=== PATIENT | female | born 1970 | race Caucasian/White ===

== ENCOUNTER 2017-10-02 17:56 | Emergency (ER) | payer MEDICARE, OTHER ==
[~2017-10-02] VITALS: Ht 152.4 cm; Wt 72.6 kg
[~2017-10-02 17:56] MED LIST: ALBU90OI INH; ATOM25 PO; Ativan0.5 MG PO; BENZ1 PO; BENZ2 PO; BUSP15 PO; BUSPAR PO; CARB200; DIAZ5 PO; DULO60 PO; FLUSAL2505 INH; GUAI600T33 PO; HALDOL PO; HALO1 PO; HYDHCL25 PO; IBUP200 PO; LEVE500 PO; LITH300CA PO; LITH300ER; LORA1; LORA1 PO; LORAZEPAM PO; METO25ER PO; MIRT15 PO; PERP4 PO; PRED20; PROP10 PO; PROP20 PO; QUET100 PO; QUET200 PO; QUET300 PO; RANI150 PO; VENL75; [UNRECOGNIZED DRUG - REMARK]
[2017-10-02] MEDS ORDERED: LEVE500 PO (18:08)
== END 2017-10-02 19:32 | disposition home or self-care (01) ==
LOC: ER 17:56
DX: G40.909 Epilepsy, unspecified, not intractable, without status epilepticus (principal); Z91.14 Patient's other noncompliance with medication regimen; F31.9 Bipolar disorder, unspecified; F17.210 Nicotine dependence, cigarettes, uncomplicated; Z79.899 Other long term (current) drug therapy
CPT/HCPCS: J1953; J3010

== ENCOUNTER → 2019-05-02 | Outpatient (CLI) | payer MEDICARE, OTHER ==
[2019-05-02 18:20] LABS: U Amphetamine Screen Not Detected; U Barbituate Screen Not Detected; U Benzodiazapine Screen DETECTED; U Buprenorphine Screen Not Detected; U Cannabinoids Screen DETECTED; U Cocaine Screen Not Detected; U Methadone Screen Not Detected; U Methamphetamine Screen Not Detected; U Opiates Screen Not Detected; U Oxycodone Screen Not Detected; U Phencyclidine Screen DETECTED; U Propoxyphene Screen Not Detected
== END | disposition home or self-care (01) ==
LOC: LAB 17:33 → LAB SHORT 17:33
PROVIDERS: Psychiatry & Neurology Psychiatry
DX: Z51.81 Encounter for therapeutic drug level monitoring (principal); Z79.899 Other long term (current) drug therapy
CPT/HCPCS: G0480

== ENCOUNTER → 2020-02-22 | Outpatient (CLI) | payer MEDICARE, OTHER ==
[2020-02-22 14:00] LABS: BASOPHILS ABSOLUTE AUTO 0.04 K/mm3 (0.00-0.23); BASOPHILS PERCENT AUTO 1 % (0-2); EOSINOPHILS ABSOLUTE AUTO 0.09 K/mm3 (0.00-0.68); EOSINOPHILS PERCENT AUTO 1 % (0-6); Hematocrit 29.9 % (33.0-51.0); Hemoglobin 8.6 g/dL (11.5-16.0); IMMATURE GRAN ABSOLUTE AUTO 0.03 K/mm3 (0.00-0.10); IMMATURE GRAN PERCENT AUTO 0 % (0-1); LYMPHOCYTES ABSOLUTE AUTO 1.82 K/mm3 (0.84-5.20); LYMPHOCYTES PERCENT AUTO 27 % (21-46); MONOCYTES ABSOLUTE AUTO 0.45 K/mm3 (0.16-1.47); MONOCYTES PERCENT AUTO 7 % (4-13); Mean Corpuscular HGB 20.2 pg (26.0-34.0); Mean Corpuscular HGB Conc 28.8 g/dL (31.5-36.5); Mean Corpuscular Volume 70 fL (80-100); Mean Platelet Volume 9.1 fL (9.1-12.4); NEUTROPHILS ABSOLUTE AUTO 4.36 K/mm3 (1.96-9.15); NEUTROPHILS PERCENT AUTO 64 % (41-73); Platelet Count 373 K/mm3 (150-400); RDW Coefficient Variation 22.4 % (11.7-14.2); Red Blood Cell Count 4.26 M/mm3 (3.80-5.20); White Blood Cell Count 6.79 K/mm3 (4.00-11.30)
[2020-02-22 14:05] LABS: Alanine Aminotransfer (ALT/SGP 21 U/L (12-78); Albumin, Blood 3.6 g/dL (3.4-5.0); Albumin/Globulin Ratio 0.9 (0.8-1.8); Alk Phos 63 U/L (40-126); Anion Gap 8 mmol/L (6-16); Aspartate Aminotrans (AST/SGOT 17 U/L (12-37); Bilirubin, Total 0.2 mg/dL (0.1-1.0); Blood Urea Nitrogen 9 mg/dL (8-24); Bun/Creatinine Ratio 15.5 (12.0-20.0); CO2, Blood 29 mmol/L (21-32); Calcium, Blood 8.5 mg/dL (8.5-10.1); Chloride, Blood 103 mmol/L (98-108); Creatinine, Blood 0.58 mg/dL (0.40-1.00); Globulin, Blood 3.8 g/dL (2.2-4.0); Glomerular Filtration Rate >60 (60-); Glucose, Blood 91 mg/dL (70-99); Potassium, Blood 3.9 mmol/L (3.5-5.5); Sodium, Blood 140 mmol/L (136-145); Total Protein, Blood 7.4 g/dL (6.4-8.2)
[2020-02-22 14:13] LABS: Troponin I <0.017 ng/mL (0.000-0.040)
[2020-02-22 15:17] LABS: Percent Saturation 2.1 % (15.0-50.0)
== END | disposition home or self-care (01) ==
LOC: LAB SHORT 13:39 → LAB EV 13:39
PROVIDERS: Chiropractor
DX: D64.9 Anemia, unspecified (principal); R07.9 Chest pain, unspecified
CPT/HCPCS: 80053; 82728; 83540; 83550; 84484; 85025; 85379

== ENCOUNTER 2020-03-16 13:18 | Inpatient (IN) | payer MEDICARE, OTHER ==
[~2020-03-16] VITALS: Ht 157.5 cm; Wt 99.8 kg
[~2020-03-16 13:18] MED LIST changes: -DULO60 PO
[2020-03-16 14:20] LABS: BASOPHILS ABSOLUTE AUTO 0.03 K/mm3 (0.00-0.23); BASOPHILS PERCENT AUTO 0 % (0-2); EOSINOPHILS ABSOLUTE AUTO 0.09 K/mm3 (0.00-0.68); EOSINOPHILS PERCENT AUTO 1 % (0-6); Hematocrit 36.8 % (33.0-51.0); Hemoglobin 10.9 g/dL (11.5-16.0); IMMATURE GRAN ABSOLUTE AUTO 0.04 K/mm3 (0.00-0.10); IMMATURE GRAN PERCENT AUTO 1 % (0-1); LYMPHOCYTES ABSOLUTE AUTO 1.07 K/mm3 (0.84-5.20); LYMPHOCYTES PERCENT AUTO 12 % (21-46); MONOCYTES PERCENT AUTO 6 % (4-13); Mean Corpuscular HGB 23.2 pg (26.0-34.0); Mean Corpuscular HGB Conc 29.6 g/dL (31.5-36.5); Mean Corpuscular Volume 78 fL (80-100); Mean Platelet Volume 8.9 fL (9.1-12.4); NEUTROPHILS ABSOLUTE AUTO 6.91 K/mm3 (1.96-9.15); NEUTROPHILS PERCENT AUTO 80 % (41-73); Platelet Count 271 K/mm3 (150-400); RDW Coefficient Variation 27.1 % (11.7-14.2); RDW Standard Deviation 74.8 fL (35.1-46.3); White Blood Cell Count 8.64 K/mm3 (4.00-11.30)
[2020-03-16 14:42] LABS: Acetaminophen, Random <2.0 ug/mL (10.0-30.0); Alanine Aminotransfer (ALT/SGP 24 U/L (12-78); Albumin, Blood 3.1 g/dL (3.4-5.0); Alk Phos 64 U/L (50-136); Anion Gap 4 mmol/L (6-16); Aspartate Aminotrans (AST/SGOT 30 U/L (12-37); Bilirubin, Total 0.2 mg/dL (0.1-1.0); Blood Urea Nitrogen 10 mg/dL (8-24); Bun/Creatinine Ratio 14.7 (12.0-20.0); CO2, Blood 28 mmol/L (21-32); Calcium, Blood 8.4 mg/dL (8.5-10.1); Chloride, Blood 110 mmol/L (98-108); Creatinine, Blood 0.68 mg/dL (0.40-1.00); Ethanol (Alcohol), Blood, Med <3 mg/dL; Globulin, Blood 3.2 g/dL (2.2-4.0); Glomerular Filtration Rate >60 (60-); Glucose, Blood 121 mg/dL (70-99); Potassium, Blood 3.8 mmol/L (3.5-5.5); Salicylate <1.7 mg/dL (2.8-20.0); Sodium, Blood 142 mmol/L (136-145); Thyroid Stimulating Hormone 0.795 uIU/mL (0.360-4.800); Thyroxine (T4) 10.2 ug/dL (4.8-13.9); Total Protein, Blood 6.3 g/dL (6.4-8.2)
[2020-03-16 16:15] LABS: U Amphetamine Screen Not Detected; U Barbituate Screen Not Detected; U Benzodiazapine Screen DETECTED; U Buprenorphine Screen Not Detected; U Cannabinoids Screen Not Detected; U Cocaine Screen Not Detected; U Methadone Screen Not Detected; U Methamphetamine Screen DETECTED; U Opiates Screen Not Detected; U Oxycodone Screen Not Detected; U Phencyclidine Screen Not Detected; U Propoxyphene Screen Not Detected
[2020-03-16] MEDS ORDERED: ATORVASTATIN CA20 MG PO (16:25)
[2020-03-16] MEDS ORDERED: Lamictal150 MG PO (16:25)
[2020-03-16] MEDS ORDERED: DULO60 PO (16:26)
[2020-03-16] MEDS ORDERED: Hydroxyzine HCl50 MG PO (16:27)
[2020-03-16] MEDS ORDERED: LEVETIRACETAM PO (16:28)
[2020-03-16] MEDS ORDERED: Ativan1 MG PO (16:29)
[2020-03-16] MEDS ORDERED: TRAZ150T57 PO (16:30)
[2020-03-16] MEDS ORDERED: PRILOSEC OTC20 MG PO (16:30)
[2020-03-16] MEDS ORDERED: SYMBICORT 80-10.2 GM INH (16:31)
[2020-03-16] MEDS ORDERED: ZIPRASIDONE HCL PO (16:31)
[2020-03-16] MEDS ORDERED: Ventolin/Prove6.7 GM INH (16:32)
[2020-03-16] MEDS ORDERED: ZANAFLEX4 M2 PO (16:33)
[2020-03-17 13:05] LABS: BASOPHILS ABSOLUTE AUTO 0.02 K/mm3 (0.00-0.23); BASOPHILS PERCENT AUTO 0 % (0-2); EOSINOPHILS ABSOLUTE AUTO 0.06 K/mm3 (0.00-0.68); EOSINOPHILS PERCENT AUTO 1 % (0-6); Hematocrit 38.4 % (33.0-51.0); IMMATURE GRAN ABSOLUTE AUTO 0.02 K/mm3 (0.00-0.10); IMMATURE GRAN PERCENT AUTO 0 % (0-1); LYMPHOCYTES ABSOLUTE AUTO 1.65 K/mm3 (0.84-5.20); LYMPHOCYTES PERCENT AUTO 25 % (21-46); MONOCYTES ABSOLUTE AUTO 0.36 K/mm3 (0.16-1.47); MONOCYTES PERCENT AUTO 5 % (4-13); Mean Corpuscular HGB 22.8 pg (26.0-34.0); Mean Corpuscular HGB Conc 28.6 g/dL (31.5-36.5); Mean Corpuscular Volume 80 fL (80-100); Mean Platelet Volume 8.6 fL (9.1-12.4); NEUTROPHILS ABSOLUTE AUTO 4.56 K/mm3 (1.96-9.15); NEUTROPHILS PERCENT AUTO 68 % (41-73); Platelet Count 303 K/mm3 (150-400); RDW Coefficient Variation 27.3 % (11.7-14.2); RDW Standard Deviation 75.7 fL (35.1-46.3); Red Blood Cell Count 4.83 M/mm3 (3.80-5.20); White Blood Cell Count 6.67 K/mm3 (4.00-11.30)
[2020-03-17 13:28] LABS: Alanine Aminotransfer (ALT/SGP 28 U/L (12-78); Albumin, Blood 3.6 g/dL (3.4-5.0); Alk Phos 77 U/L (50-136); Anion Gap 7 mmol/L (6-16); Aspartate Aminotrans (AST/SGOT 30 U/L (12-37); Bilirubin, Total 0.3 mg/dL (0.1-1.0); Blood Urea Nitrogen 10 mg/dL (8-24); Bun/Creatinine Ratio 16.7 (12.0-20.0); CO2, Blood 27 mmol/L (21-32); Calcium, Blood 8.8 mg/dL (8.5-10.1); Chloride, Blood 107 mmol/L (98-108); Globulin, Blood 3.6 g/dL (2.2-4.0); Glomerular Filtration Rate >60 (60-); Glucose, Blood 146 mg/dL (70-99); Potassium, Blood 3.4 mmol/L (3.5-5.5); Sodium, Blood 141 mmol/L (136-145); Total Protein, Blood 7.2 g/dL (6.4-8.2)
[2020-03-17 15:18] LABS: Source, Urine Catheter
[2020-03-17 15:21] LABS: Appearance, Urine Clear (Clear); Bilirubin, Urine Neg (Neg); Blood, Urine 4+ (Neg); Color, Urine Yellow (P-Yellow); Glucose Qualitative, Urine Neg (Neg); Ketones, Urine Neg (Neg); Leukocyte Esterase, Urine Neg (Neg); Nitrite, Urine Neg (Neg); Protein, Urine 1+ (Neg); Urobilinogen, Urine NORM (Normal)
[2020-03-17 15:27] LABS: Bacteria Rare /hpf; Squamous Epithelial Cells Rare /hpf (Few); White Blood Cells, Urine Rare /hpf (0-5)
[2020-03-18 10:28] LABS: Hematocrit 34.9 % (33.0-51.0); Hemoglobin 10.5 g/dL (11.5-16.0)
[2020-03-18 10:44] LABS: Anion Gap 6 mmol/L (6-16); Blood Urea Nitrogen 7 mg/dL (8-24); Bun/Creatinine Ratio 13.1 (12.0-20.0); CO2, Blood 29 mmol/L (21-32); Calcium, Blood 8.4 mg/dL (8.5-10.1); Chloride, Blood 109 mmol/L (98-108); Creatinine, Blood 0.53 mg/dL (0.40-1.00); Glomerular Filtration Rate >60 (60-); Glucose, Blood 88 mg/dL (70-99); Potassium, Blood 3.1 mmol/L (3.5-5.5); Sodium, Blood 144 mmol/L (136-145)
[2020-03-18 11:10] LABS: Creatine Kinase MB 2.4 ng/mL (0.0-3.6); Creatine Kinase MB Index 0.9 (0.0-4.0)
--- NOTE | 2020-03-18 14:08 | NUR ---
NEW ER ADMIT PT ARRIVE TO RM 327 APPROX 1300. ER REPORT THAT PT INITIALLY CAME TO HOSP AFTER SA BY MADYSON NOLAN & MIGUEL. STATE @ THIS TIME PT IS NOT SUICIDAL. PT VERIFIES, STATE NO SI @ THIS TIME. DX ETOH W/D, SHE STATE LAST DRINK 2 DAY AGO. SHE HAS MILD HAND TREMORS, WHEN ATTEMPTS TO GET OOB SHE IS VERY UNSTEADY, HIGH FALL RISK. BP 154/103, HR 91. SHE STATE FEELING ANXIOUS, DEPRESSED. ATIVAN 1MG GIVEN. MELE OBTAINED FOR HER SISTER ERIC, CHETNA. BANANA BAG INFUSING. PT ASSISTED TO BSC, 2 ASSIST @ THIS TIME. ACTIVE MENSES.
--- NOTE | 2020-03-18 16:11 | NUR ---
CIWA 7. BP 160/98, HR 89. SHE STATE NO DOUBLE VISION @ THIS TIME. CONTINUES TREMULOUS. PRN LIBRIUM 25MG GIVEN. PHYTHER IN FOR EVAL/TX.
[2020-03-18 17:32] LABS: Hematocrit 36.9 % (33.0-51.0); Hemoglobin 10.8 g/dL (11.5-16.0)
[2020-03-19] LABS: Hematocrit 36.3 % (33.0-51.0); Hemoglobin 10.7 g/dL (11.5-16.0)
--- NOTE | 2020-03-19 05:25 | NUR ---
SHIFT SUMMARY: VSS. AFEB. AAOX3. FLAT AFFECT. NO SUICIDAL STATEMENTS. ABLE TO COMMUNICATE NEEDS. CIWA SCORE OF 6 X 2 TONIGHT. NO WITHDRAWAL MEDS GIVEN SO FAR THIS SHIFT. PT STANDING AND PIVOTING TO BSC W/ 1 ASSIST AND LITTLE TO TREMORING. CONTINENT OF B/B. NO ACUTE CHANGES OVERNIGHT. WILL CONT TO MONITOR.
[2020-03-19 05:32] LABS: Hematocrit 36.2 % (33.0-51.0); Hemoglobin 10.7 g/dL (11.5-16.0); Mean Corpuscular HGB 23.1 pg (26.0-34.0); Mean Corpuscular HGB Conc 29.6 g/dL (31.5-36.5); Mean Corpuscular Volume 78 fL (80-100); Mean Platelet Volume 8.5 fL (9.1-12.4); Platelet Count 275 K/mm3 (150-400); RDW Coefficient Variation 26.6 % (11.7-14.2); Red Blood Cell Count 4.63 M/mm3 (3.80-5.20); White Blood Cell Count 7.02 K/mm3 (4.00-11.30)
[2020-03-19 06:15] LABS: Alanine Aminotransfer (ALT/SGP 22 U/L (12-78); Albumin, Blood 3.4 g/dL (3.4-5.0); Albumin/Globulin Ratio 1.1 (0.8-1.8); Alk Phos 63 U/L (50-136); Anion Gap 4 mmol/L (6-16); Aspartate Aminotrans (AST/SGOT 21 U/L (12-37); Bilirubin, Total 0.4 mg/dL (0.1-1.0); Blood Urea Nitrogen 7 mg/dL (8-24); Bun/Creatinine Ratio 12.1 (12.0-20.0); CO2, Blood 30 mmol/L (21-32); Calcium, Blood 8.4 mg/dL (8.5-10.1); Chloride, Blood 110 mmol/L (98-108); Creatinine, Blood 0.58 mg/dL (0.40-1.00); Globulin, Blood 3.2 g/dL (2.2-4.0); Glomerular Filtration Rate >60 (60-); Glucose, Blood 94 mg/dL (70-99); Magnesium, Blood 2.2 mg/dL (1.6-2.4); Potassium, Blood 3.1 mmol/L (3.5-5.5); Sodium, Blood 144 mmol/L (136-145); Total Protein, Blood 6.6 g/dL (6.4-8.2)
--- NOTE | 2020-03-19 16:47 | NUR ---
SUMMARY PT IS A/O X4 THIS AM. CIWA 5 D/T BUE TREMORS, ANXIETY, SHE ASK FOR ANTIANXIETY MED, PRN ATIVAN 1MG GIVEN. INSPITE OF THIS ETOH W/D SYMPTOMS MUCH IMPROVED FROM PREVIOUS DAY AND HAVE CONTINUED TO IMPROVE T/O DAY. TREMORS DECREASED, SHE WAS ABLE TO AMBULATE TO BR, MAINTENANCE OF WAY CLERK ASSIST w SHOWER. PHYTHER IN THIS AFTERNOON, PT AMBULATED IN ROOM w FWW HOWEVER CONTINUES UNSTEADY FALL RISK. CIWA 3 @ THIS TIME. VSS. K+ LOW THIS AM 3.1, DR VALE ORDER K-RIDER IN ADDITION TO SCHEDULED BANANA BAG.
--- NOTE | 2020-03-20 04:52 | NUR ---
HYPERBARIC TECHNOLOGIST SUMMARY PT HAS HAD CIWA OF 3 HOWEVER DUE TO SEVERE ANXIETY THIS AM SHE HAD A CIWA OF 6. WHILE THIS DID NOT MEET THE CRITERIA FOR CIWA-ATIVAN THE PT WAS GIVEN PRN ATIVAN 1MG SHE WAS NOT CALMING DOWN DESPITE THERAPUETIC COMMUNICATION BEING PROVIDED. PT'S ANXIETY WAS RELIEVED WELL AFTER GIVEN PRN MEDICATION. PT HAS EMOTIONAL LABLITY AND WILL BURST INTO TEARS WITH ANXIETY/DEPRESSION ABOUT HER CURRENT SITUATION AND HOME LIFE. PT IS CALM NOW AND RESTING IN BED W CALL LIGHT IN REACH, WCTM.
[2020-03-20 06:06] LABS: Albumin, Blood 3.3 g/dL (3.4-5.0); Anion Gap 5 mmol/L (6-16); Blood Urea Nitrogen 7 mg/dL (8-24); Bun/Creatinine Ratio 12.8 (12.0-20.0); CO2, Blood 29 mmol/L (21-32); Chloride, Blood 108 mmol/L (98-108); Creatinine, Blood 0.55 mg/dL (0.40-1.00); Glomerular Filtration Rate >60 (60-); Glucose, Blood 100 mg/dL (70-99); Phosphorus, Blood 3.3 mg/dL (2.5-4.9); Potassium, Blood 3.3 mmol/L (3.5-5.5); Sodium, Blood 142 mmol/L (136-145)
[2020-03-20] MEDS ORDERED: NYAMYC15 G1 TOP (10:38)
--- NOTE | 2020-03-20 10:43 | NUR ---
STAFF CLIMATE SCIENTIST PAIGE IN TO SEE PT. SHE CAME OUT AND REPORTED PT HAD NOT SEEN THE DR YET AND WAS FEELING DIZZY AND UNSURE IF SHE SHOULD GO HOME. PT HAS BEEN VERY ANXIOUS THIS AM AND TEARFUL, PT REPORTS SHE DOES LIKE HER LIVING SITUATION BUT HAS NO OTHER OPTION. PRN ATIVAN WAS GIVEN FOR CIWA OF 8. PT TO D/C HOME WITH HOME HEALTH. DR VALE WAS PREVIOUSLY IN AND SPOKE WITH PT AND PT WAS ALSO REQUESTING TO BE INDEP UP IN HER ROOM AND NO REPORT OF DIZZINESS TO NURSING STAFF. PT REMAINS A SBA ONLY DUE TO IV PUMP. F/U ERIBERTO MADE WITH [facility] PCP. WILL CALL AND UPDATE DAUGHTER.
--- NOTE | 2020-03-20 11:53 | NUR ---
DISCHARGE- PT DAUGHTER RAYO CALLED WITH CONCERNS OF PT BEING DISCHARGED. PT LIVES WITH DAUGHTER AT THIS TIME AND DAUGHTER RAYO HAS YOUNG CHILDREN IN THE HOME. RAYO REPORTS SHE DOES NOT FEEL THAT THE PT IS OK TO DISCHARGE AND FEELS THAT SHE NEEDS SOME TYPE OF INPATIENT TREATMENT IN MENTAL HEALTH OR ALCOHOL. SHE REPORTS PT HAS BEEN PHYSICAL AND ALSO TOOK A [employer]OLF CLUB TO A DOG PRIOR TO BEING ADMITTED TO THE HOSPITAL. DAUGHTER REPORTS THE POLICE WERE CALLED FOR THIS. I CALLED AND SPOKE WITH SENIOR PROJECT CONTROLS SPECIALIST RAMON REGARDING THESE CONCERNS, RAMON CALLED AND SPOKE WITH DAUGHTER AND AWAITING FOLLOW UP AT THIS TIME.
--- NOTE | 2020-03-20 12:46 | NUR ---
SPOKE AND GOT AN UPDATE FROM DAUGHTER, DAUGHTER HAS SPOKE TO BOTH FERRY CAPTAIN RAMON WELL HER MOTHER. PER DAUGHTER PT CAN RETURN HOME LONG PT AGREES TO SEEK HELP WITH HER ALCOHOLISM. PT HAS AGREED TO DAUGHTER THAT SHE WILL SEEK TREATMENT AND FOLLOW UP WITH HER COUNSELOR, SHE DOES HAVE AN APPT TOMORROW AT 2:00. RAMON GAVE DAUGHTER RESOURCES FOR ADAPT. PER DAUGHTER RAYO KULKARNI TO SCHEDULE RIDE BACK TO HER HOME FOR DISCHARGE. WILL GO [facility]O DISCHARGE ORDERS WITH PT AND SCHEDULE TRANSPORT HOME.
--- NOTE | 2020-03-20 14:04 | NUR ---
PT DISCHARGED AT APPROX 1400 BY WHEELCHAIR. DESIZING MACHINE OFFBEARER TOOK PT DOWN TO PT ENTRANCE WHERE LINDA IS SCHEDULED TO PICK HER UP. HOME MEDICATIONS WERE PICKED UP FROM PHARMACY AND RETURNED TO PT BEFORE BEING DC'D. IV WAS REMOVED, SITE APPEARED WITHIN NORMAL LIMITS. DISCHARGE INSTRUCTIONS, EDUCATION, AND UPCOMING APPOINTMENTS WERE DISCUSSES WITH PT.
== END 2020-03-20 14:04 | disposition home health service (06) | DRG 897 ==
LOC: ER 13:18 → MEDS 13:19 → EOR 13:19 → MEDS 03-18 10:23
PROVIDERS: Emergency Medicine; Internal Medicine; Nurse Practitioner Acute Care; ADMIT Emergency Medicine
DX: F10.239 Alcohol dependence with withdrawal, unspecified (principal); F31.81 Bipolar II disorder; T65.92XA Toxic effect of unspecified substance, intentional self-harm, initial encounter; F10.180 Alcohol abuse with alcohol-induced anxiety disorder; E78.5 Hyperlipidemia, unspecified; E87.6 Hypokalemia; K21.9 Gastro-esophageal reflux disease without esophagitis; F60.3 Borderline personality disorder; F15.10 Other stimulant abuse, uncomplicated; G40.909 Epilepsy, unspecified, not intractable, without status epilepticus; K64.9 Unspecified hemorrhoids; D50.9 Iron deficiency anemia, unspecified; J44.9 Chronic obstructive pulmonary disease, unspecified; Z91.5 Personal history of self-harm; E66.01 Morbid (severe) obesity due to excess calories
CPT/HCPCS: 36415; 70450; 71045; 80048; 80053; 80069; 81001; 81025; 82140; 82550; 82553; 83735; 84436; 84443; 85014; 85018; 85025; 85027; 93005; 93010; 94640; 94760; 97116; 97162; 97165; 97535; 99285-25; A9270; G0378; G0480; J2060; J2405; J3411; J3475; J3480; J7030; J7042; J7120; P9612; Q3014

== ENCOUNTER → 2020-10-04 | Outpatient (CLI) | payer MEDICARE, OTHER ==
[~2020-10-04] MED LIST changes: +ALBU8HFA2 INH; +ATORVASTATIN CA20 MG PO; +Ativan1 MG PO; +DULO60 PO; +FERSU300 PO; +Hydroxyzine HCl50 MG PO; +LACT10SY PO; +LEVETIRACETAM PO; +Lamictal150 MG PO; +MIRALAX17 GM PO; +NYAMYC15 G1 TOP; +Norco 5-325 Ta1 EACH PO; +PRENATAL TABLE1 EAC2 PO; +PRILOSEC OTC20 MG PO; +PROM25 PO; +SYMBICORT 80-10.2 GM INH; +TOPI50 PO; +TRAZ150T57 PO; +Ventolin/Prove6.7 GM INH; +ZANAFLEX4 M2 PO; +ZIPRASIDONE HCL PO
== END | disposition home or self-care (01) ==
LOC: LAB EV 16:48 → LAB SHORT 16:48
DX: K65.1 Peritoneal abscess (principal)
CPT/HCPCS: 87070; 87075; 87205

== ENCOUNTER 2020-11-14 06:58 | Day surgery (SDC) | payer MEDICARE, OTHER ==
[2020-11-13 13:34] LABS: BASOPHILS ABSOLUTE AUTO 0.05 K/mm3 (0.00-0.23); BASOPHILS PERCENT AUTO 1 % (0-2); EOSINOPHILS ABSOLUTE AUTO 0.13 K/mm3 (0.00-0.68); EOSINOPHILS PERCENT AUTO 2 % (0-6); Hemoglobin 11.4 g/dL (11.5-16.0); IMMATURE GRAN ABSOLUTE AUTO 0.03 K/mm3 (0.00-0.10); IMMATURE GRAN PERCENT AUTO 0 % (0-1); LYMPHOCYTES ABSOLUTE AUTO 2.25 K/mm3 (0.84-5.20); LYMPHOCYTES PERCENT AUTO 30 % (21-46); MONOCYTES ABSOLUTE AUTO 0.55 K/mm3 (0.16-1.47); MONOCYTES PERCENT AUTO 7 % (4-13); Mean Corpuscular HGB 28.6 pg (26.0-34.0); Mean Corpuscular HGB Conc 32.6 g/dL (31.5-36.5); Mean Corpuscular Volume 88 fL (80-100); Mean Platelet Volume 9.6 fL (9.1-12.4); NEUTROPHILS ABSOLUTE AUTO 4.44 K/mm3 (1.96-9.15); NEUTROPHILS PERCENT AUTO 60 % (41-73); Platelet Count 315 K/mm3 (150-400); RDW Coefficient Variation 13.7 % (11.7-14.2); RDW Standard Deviation 44.1 fL (35.1-46.3); Red Blood Cell Count 3.98 M/mm3 (3.80-5.20); White Blood Cell Count 7.45 K/mm3 (4.00-11.30)
[2020-11-13 13:53] LABS: Anion Gap 5 mmol/L (6-16); Blood Urea Nitrogen 5 mg/dL (8-24); Bun/Creatinine Ratio 7.7 (12.0-20.0); CO2, Blood 25 mmol/L (21-32); Calcium, Blood 8.9 mg/dL (8.5-10.1); Chloride, Blood 110 mmol/L (98-108); Creatinine, Blood 0.65 mg/dL (0.40-1.00); Glomerular Filtration Rate >60 (60-); Glucose, Blood 90 mg/dL (70-99); Potassium, Blood 3.6 mmol/L (3.5-5.5); Sodium, Blood 140 mmol/L (136-145)
[~2020-11-14] VITALS: Ht 175 cm; Wt 75.5 kg
[~2020-11-14 06:58] MED LIST changes: -ALBU8HFA2 INH; -FERSU300 PO; -LACT10SY PO; -MIRALAX17 GM PO; -Norco 5-325 Ta1 EACH PO; -PRENATAL TABLE1 EAC2 PO; -PROM25 PO; -TOPI50 PO
[2020-11-14] MEDS ORDERED: ALBU8HFA2 INH (08:02)
[2020-11-14] MEDS ORDERED: Norco 5-325 Ta1 EACH PO (08:03)
[2020-11-14] MEDS ORDERED: PROM25 PO (08:04)
[2020-11-14] MEDS ORDERED: PRENATAL TABLE1 EAC2 PO (08:05)
[2020-11-14] MEDS ORDERED: FERSU300 PO (08:06)
[2020-11-14] MEDS ORDERED: LACT10SY PO (08:07)
[2020-11-14] MEDS ORDERED: MIRALAX17 GM PO (08:08)
[2020-11-14] MEDS ORDERED: TOPI50 PO (08:09)
--- NOTE | 2020-11-14 10:15 | NUR ---
11/14/20 1015 TRUPTI,RICHIE PT NOTED PRIOR TO PROCEDURE TO HAVE SMALL REDDENED AREA TO LEFT SIDE OF LOWER ABDOMEN, NO DRAINAGE NOTED. PTS LOWER PANNIS AREA ALSO NOTED TO BE REDDENED, DR MACIEL MADE AWARE AMD ORDERED FOR DIFLUCAN IV X1 TO BE GIVEN AND TO COVER REDDENED AREA TO LOWER ABDOMEN WITH OPSITE, FOLLOWED THROUGH WITH DR STALLWORTH.
--- NOTE | 2020-11-14 16:29 | NUR ---
VSS, SLEEPING, AWAKENS EASILY, ASSISTED TO USE PHONE TO TALK TO SISTER, APPEARS TO BE COMFORTABLE AT THIS TIME.
--- NOTE | 2020-11-14 18:31 | NUR ---
SUMMARY VSS, PT WOKE UP LATE THIS AFTERNOON, AMBULATED TO THE BATHROOM TO VOID, VOIDED 750CC DARK PINK URINE, TOLERATED CLEAR LIQUIDS AND SOME CRACKERS WELL, MEDICATED WITH 2 PERCOCET FOR C/O 8/10 ABD INCISIONAL PAIN, DENIES ANY NAUSEA, PT FEELS LIKE STAYING TONIGHT BUT FEELS OK TO GO HOME LATER IF SHE FEELS BETTER LATER, NO ACUTE CHANGES THIS SHIFT.
--- NOTE | 2020-11-14 21:41 | NUR ---
IV DOCUMENTED R AC, IV ACCESS IS LOCATED IN L FA AND L UA.
[2020-11-15 04:15] LABS: BASOPHILS ABSOLUTE AUTO 0.02 K/mm3 (0.00-0.23); BASOPHILS PERCENT AUTO 0 % (0-2); EOSINOPHILS PERCENT AUTO 0 % (0-6); Hematocrit 31.7 % (33.0-51.0); Hemoglobin 10.2 g/dL (11.5-16.0); IMMATURE GRAN ABSOLUTE AUTO 0.04 K/mm3 (0.00-0.10); IMMATURE GRAN PERCENT AUTO 0 % (0-1); LYMPHOCYTES ABSOLUTE AUTO 1.45 K/mm3 (0.84-5.20); LYMPHOCYTES PERCENT AUTO 10 % (21-46); MONOCYTES ABSOLUTE AUTO 0.89 K/mm3 (0.16-1.47); MONOCYTES PERCENT AUTO 6 % (4-13); Mean Corpuscular HGB 28.9 pg (26.0-34.0); Mean Corpuscular HGB Conc 32.2 g/dL (31.5-36.5); Mean Corpuscular Volume 90 fL (80-100); Mean Platelet Volume 9.3 fL (9.1-12.4); NEUTROPHILS ABSOLUTE AUTO 12.09 K/mm3 (1.96-9.15); NEUTROPHILS PERCENT AUTO 84 % (41-73); Platelet Count 272 K/mm3 (150-400); RDW Standard Deviation 45.5 fL (35.1-46.3); Red Blood Cell Count 3.53 M/mm3 (3.80-5.20); White Blood Cell Count 14.49 K/mm3 (4.00-11.30)
--- NOTE | 2020-11-15 06:14 | NUR ---
SHIFT SUMMARY POD1 TOTAL ROBOTIC LAP HYSTER, A/O X4, VSS, TOLERATING PO, AMBULATING, VOIDING, PAIN WELL MANAGED PER EMAR, SMALL DRAINAGE ON 1 RUBY PAD. NO ACUTE EVENTS THIS SHIFT. CALL LIGHT IN REACH, WILL CTM AND REPORT TO ONCOMING DAY RN.
--- NOTE | 2020-11-15 09:55 | NUR ---
DC INSTRUCTIONS GIVEN, VERALIZED UNDERSTANDING, IV'S DC'D, CATHS INTACT, PT WAITING FOR RIDE HOME.
== END 2020-11-15 10:15 | disposition home or self-care (01) ==
LOC: ORSCMMR 06:58 → ORD 08:30 → SURS 14:03 → ORSCMMR 11-15 10:15
PROVIDERS: Obstetrics & Gynecology
PROC: 8E0W4CZ Robotic Assisted Procedure of Trunk Region, Percutaneous Endoscopic Approach (ICD-10-PCS; principal; 2020-11-14 08:30)
PROC: 0UT24ZZ Resection of Bilateral Ovaries, Percutaneous Endoscopic Approach (ICD-10-PCS; principal; 2020-11-14 08:30)
PROC: 0UT94ZZ Resection of Uterus, Percutaneous Endoscopic Approach (ICD-10-PCS; principal; 2020-11-14 08:30)
PROC: 0DNU4ZZ Release Omentum, Percutaneous Endoscopic Approach (ICD-10-PCS; principal; 2020-11-14 08:30)
PROC: 0UT74ZZ Resection of Bilateral Fallopian Tubes, Percutaneous Endoscopic Approach (ICD-10-PCS; principal; 2020-11-14 08:30)
DX: N92.0 Excessive and frequent menstruation with regular cycle (principal); D25.9 Leiomyoma of uterus, unspecified; N84.0 Polyp of corpus uteri; K66.0 Peritoneal adhesions (postprocedural) (postinfection); N94.89 Other specified conditions associated with female genital organs and menstrual cycle; N83.292 Other ovarian cyst, left side; N83.291 Other ovarian cyst, right side; J44.9 Chronic obstructive pulmonary disease, unspecified; G40.909 Epilepsy, unspecified, not intractable, without status epilepticus; Z87.891 Personal history of nicotine dependence; Z79.899 Other long term (current) drug therapy
CPT/HCPCS: 58571; 49329; S2900; 36415; 80048; 84703; 85025; 86850; 86900; 86901; 88307; A9270; J0171; J0690; J1100; J1450; J1885; J2250; J2270; J2370; J2405; J2704; J3010; J7120

== ENCOUNTER 2020-11-26 22:17 | Emergency (ER) | payer MEDICARE, OTHER ==
[~2020-11-26] VITALS: Ht 152.4 cm; Wt 74.8 kg
[~2020-11-26 22:17] MED LIST changes: +ALBU8HFA2 INH; +FERSU300 PO; +LACT10SY PO; +MIRALAX17 GM PO; +Norco 5-325 Ta1 EACH PO; +PRENATAL TABLE1 EAC2 PO; +PROM25 PO; +TOPI50 PO
[2020-11-26 23:10] LABS: Calcium, Ionized (POC) 1.25 mmol/L (1.10-1.46); Chloride (POC) 106 mmol/L (98-108); Creatinine (POC) 0.7 mg/dL (0.6-1.0); Glucose (ISTAT POC) 86 mg/dL (70-99); Hemoglobin (POC) 10.5 g/dL (12.0-16.0); Potassium (POC) 3.3 mmol/L (3.5-5.5); Sodium (POC) 140 mmol/L (135-148); Total CO2 (POC) 22 mmol/L (21-32)
[2020-11-27 00:02] LABS: BASOPHILS ABSOLUTE AUTO 0.05 K/mm3 (0.00-0.23); BASOPHILS PERCENT AUTO 1 % (0-2); EOSINOPHILS ABSOLUTE AUTO 0.14 K/mm3 (0.00-0.68); EOSINOPHILS PERCENT AUTO 1 % (0-6); Hematocrit 31.9 % (33.0-51.0); Hemoglobin 10.1 g/dL (11.5-16.0); IMMATURE GRAN ABSOLUTE AUTO 0.05 K/mm3 (0.00-0.10); IMMATURE GRAN PERCENT AUTO 1 % (0-1); LYMPHOCYTES ABSOLUTE AUTO 2.61 K/mm3 (0.84-5.20); LYMPHOCYTES PERCENT AUTO 27 % (21-46); MONOCYTES ABSOLUTE AUTO 0.59 K/mm3 (0.16-1.47); MONOCYTES PERCENT AUTO 6 % (4-13); Mean Corpuscular HGB 27.5 pg (26.0-34.0); Mean Corpuscular HGB Conc 31.7 g/dL (31.5-36.5); Mean Corpuscular Volume 87 fL (80-100); Mean Platelet Volume 8.8 fL (9.1-12.4); NEUTROPHILS ABSOLUTE AUTO 6.39 K/mm3 (1.96-9.15); NEUTROPHILS PERCENT AUTO 65 % (41-73); Platelet Count 373 K/mm3 (150-400); RDW Coefficient Variation 12.7 % (11.7-14.2); RDW Standard Deviation 40.4 fL (35.1-46.3); Red Blood Cell Count 3.67 M/mm3 (3.80-5.20); White Blood Cell Count 9.83 K/mm3 (4.00-11.30)
[2020-11-27 00:23] LABS: Alanine Aminotransfer (ALT/SGP 15 U/L (12-78); Albumin, Blood 3.4 g/dL (3.4-5.0); Alk Phos 54 U/L (50-136); Anion Gap 6 mmol/L (6-16); Aspartate Aminotrans (AST/SGOT 7 U/L (12-37); Bilirubin, Total 0.3 mg/dL (0.1-1.0); Blood Urea Nitrogen 5 mg/dL (8-24); Bun/Creatinine Ratio 7.5 (12.0-20.0); CO2, Blood 25 mmol/L (21-32); Calcium, Blood 8.7 mg/dL (8.5-10.1); Chloride, Blood 109 mmol/L (98-108); Creatinine, Blood 0.67 mg/dL (0.40-1.00); Ferritin, Serum 19 ng/mL (8-252); Globulin, Blood 3.4 g/dL (2.2-4.0); Glomerular Filtration Rate >60 (60-); Glucose, Blood 83 mg/dL (70-99); Iron Serum 42 ug/dL (50-170); Percent Saturation 13.6 % (15.0-50.0); Potassium, Blood 3.4 mmol/L (3.5-5.5); Sodium, Blood 140 mmol/L (136-145); Total Iron Binding Capacity 308 ug/dL (250-450); Total Protein, Blood 6.8 g/dL (6.4-8.2)
== END 2020-11-27 01:33 | disposition home or self-care (01) ==
LOC: ER 22:17
PROVIDERS: Emergency Medicine
DX: N93.9 Abnormal uterine and vaginal bleeding, unspecified (principal); Z90.710 Acquired absence of both cervix and uterus; Z79.899 Other long term (current) drug therapy; Z87.891 Personal history of nicotine dependence
CPT/HCPCS: 80047; 80053; 82728; 83540; 83550; 85014; 85025; 99284; A9270

== ENCOUNTER 2021-03-19 08:14 | Day surgery (SDC) | payer MEDICARE, OTHER ==
[~2021-03-19] VITALS: Ht 152.4 cm; Wt 62.3 kg
[~2021-03-19 08:14] MED LIST changes: +Adipex-P37.5 MG PO; +COLACE100 MG PO; +DOTTI1 EA19 TOP; +[UNRECOGNIZED DRUG - REMARK]; +suppository
--- NOTE | 2021-03-19 09:53 | NUR ---
History, Chart, Medications and Allergies reviewed before start of procedure. Patient confirms NPO status and agrees with scheduled surgery. Lungs clear T/O to Auscultation. Patient States Post-Procedure ride home has been arranged with [facility] transport.
--- NOTE | 2021-03-19 10:10 | NUR ---
03/19/21 1010 Zhane Frazier History, Chart, Medications and Allergies reviewed before start of procedure. Patient confirms NPO status and agrees with scheduled surgery. 3-LEAD EKG REVIEWED WITH PHYSICIAN PRIOR TO START OF PROCEDURE. MONITOR INTACT WITH CONTINUOUS PULSE OXIMETRY AND INTERMITTENT BP. PATIENT DETERMINED TO BE ASA APPROPRIATE FOR PROPOFOL SEDATION PRIOR TO START OF PROCEDURE BY DR. MAYO.
--- NOTE | 2021-03-19 11:13 | NUR ---
DISCHARGE SUMMARY PT A&OX4, VSS, DENIES PAIN, DENIES N&V, TANNA PO, LEFT VIA WC TO GO HOME VIA [facility], WITH DC PACKET. IV DC'D.
== END 2021-03-19 23:24 | disposition home or self-care (01) ==
LOC: ORSCMMR 08:14 → ORD 09:30 → ORSCMMR 23:24
PROVIDERS: Internal Medicine Gastroenterology
PROC: 0DBP8ZX Excision of Rectum, Via Natural or Artificial Opening Endoscopic, Diagnostic (ICD-10-PCS; principal; 2021-03-19 09:30)
DX: K59.09 Other constipation (principal); K62.1 Rectal polyp; K64.8 Other hemorrhoids; K64.4 Residual hemorrhoidal skin tags; R56.9 Unspecified convulsions; F32.A Depression, unspecified; J44.9 Chronic obstructive pulmonary disease, unspecified; E78.00 Pure hypercholesterolemia, unspecified; Z87.891 Personal history of nicotine dependence; Z79.899 Other long term (current) drug therapy
CPT/HCPCS: 88305; J2250; J2704; J7120

== ENCOUNTER 2021-08-13 18:25 | Emergency (ER) | payer MEDICARE, OTHER ==
[~2021-08-13] VITALS: Ht 152.4 cm; Wt 72.6 kg
[2021-08-13 19:39] LABS: BASOPHILS ABSOLUTE AUTO 0.07 K/mm3 (0.00-0.23); BASOPHILS PERCENT AUTO 1 % (0-2); EOSINOPHILS ABSOLUTE AUTO 0.13 K/mm3 (0.00-0.68); EOSINOPHILS PERCENT AUTO 1 % (0-6); Hematocrit 43.6 % (33.0-51.0); Hemoglobin 14.2 g/dL (11.5-16.0); IMMATURE GRAN ABSOLUTE AUTO 0.03 K/mm3 (0.00-0.10); IMMATURE GRAN PERCENT AUTO 0 % (0-1); LYMPHOCYTES ABSOLUTE AUTO 3.35 K/mm3 (0.84-5.20); LYMPHOCYTES PERCENT AUTO 32 % (21-46); MONOCYTES ABSOLUTE AUTO 0.61 K/mm3 (0.16-1.47); MONOCYTES PERCENT AUTO 6 % (4-13); Mean Corpuscular HGB 28.6 pg (26.0-34.0); Mean Corpuscular HGB Conc 32.6 g/dL (31.5-36.5); Mean Corpuscular Volume 88 fL (80-100); Mean Platelet Volume 8.7 fL (9.1-12.4); NEUTROPHILS ABSOLUTE AUTO 6.46 K/mm3 (1.96-9.15); NEUTROPHILS PERCENT AUTO 61 % (41-73); Platelet Count 290 K/mm3 (150-400); RDW Coefficient Variation 12.4 % (11.7-14.2); RDW Standard Deviation 40.3 fL (35.1-46.3); Red Blood Cell Count 4.96 M/mm3 (3.80-5.20); White Blood Cell Count 10.65 K/mm3 (4.00-11.30)
[2021-08-13 20:03] LABS: Alanine Aminotransfer (ALT/SGP 29 U/L (12-78); Albumin, Blood 4.2 g/dL (3.4-5.0); Albumin/Globulin Ratio 1.2 (0.8-1.8); Alk Phos 66 U/L (50-136); Anion Gap 1 mmol/L (6-16); Aspartate Aminotrans (AST/SGOT 17 U/L (12-37); Bilirubin, Total 0.4 mg/dL (0.1-1.0); Blood Urea Nitrogen 10 mg/dL (8-24); Bun/Creatinine Ratio 16.2 (12.0-20.0); CO2, Blood 31 mmol/L (21-32); Calcium, Blood 9.5 mg/dL (8.5-10.1); Chloride, Blood 108 mmol/L (98-108); Creatinine, Blood 0.62 mg/dL (0.40-1.00); Globulin, Blood 3.4 g/dL (2.2-4.0); Glomerular Filtration Rate >60 (60-); Glucose, Blood 82 mg/dL (70-99); Potassium, Blood 3.6 mmol/L (3.5-5.5); Sodium, Blood 140 mmol/L (136-145); Total Protein, Blood 7.6 g/dL (6.4-8.2)
== END 2021-08-13 23:04 | disposition home or self-care (01) ==
LOC: ER 18:25
PROVIDERS: Physician Assistant
DX: S46.812A Strain of other muscles, fascia and tendons at shoulder and upper arm level, left arm, initial encounter (principal); J44.9 Chronic obstructive pulmonary disease, unspecified; E78.5 Hyperlipidemia, unspecified; Z87.891 Personal history of nicotine dependence; Z79.899 Other long term (current) drug therapy; X50.9XXA Other and unspecified overexertion or strenuous movements or postures, initial encounter
CPT/HCPCS: 36415; 71045; 80053; 84484; 85025; 93005; 93010; 96374; 99284-25; A9270; J1885

== ENCOUNTER → 2023-03-21 | Outpatient (CLI) | payer MEDICARE, OTHER | LOC: LAB 02:45 → LAB SHORT 02:45 | DX: E66.01 Morbid (severe) obesity due to excess calories (principal) | CPT/HCPCS: 80400; 82533 ==